=== PATIENT | male | born 1975 | race Caucasian/White ===

== ENCOUNTER 2020-03-13 19:02 | Emergency (ER) | payer OTHER ==
[2020-03-13 20:33] LABS: HEMOGLOBIN 16.1 gm/dl (14.0-17.5); RED BLOOD COUNT 5.31 M/UL (4.20-5.50)
[2020-03-13 20:51] LABS: BUN/CREATININE RATIO 14 (0-10)
[2020-03-13] MEDS ORDERED: ONDANSETRON ODT4 MG SL (21:58)
[2020-03-13] MEDS ORDERED: NAPROSYN500 MG PO (21:58)
[2020-03-13] MEDS ORDERED: CIPRO500 MG PO (21:58)
[2020-03-13] MEDS ORDERED: FLAGYL500 MG PO (21:58)
[2020-03-13] MEDS ORDERED: AUGMENTIN 875-1 EACH PO (22:05)
[2020-03-13] MEDS ORDERED: DULCOLAX5 MG PO (22:14)
== END 2020-03-13 22:39 | disposition home or self-care (01) ==
LOC: ER1 19:02
PROVIDERS: Physician Assistant
DX: K57.32 Diverticulitis of large intestine without perforation or abscess without bleeding (principal)
CPT/HCPCS: 80053; 81001; 83690; 85025; 96374; 99284; J1885; Q9967